=== PATIENT | male | born 1965 | race Caucasian/White ===

== ENCOUNTER → 2020-10-03 | Outpatient (CLI) | payer OTHER ==
--- NOTE | 2020-10-04 10:42 | XR ---
Right shoulder HISTORY: Strain one month prior, pain 3 views of the right shoulder Bone mineralization, joint spaces and alignment are maintained. Sclerotic focus within the proximal m etaphyseal right humerus could represent a bone island. Lung apex as visualized is normal. Suspect th ere is some hypertrophic change of the inferior bony labrum. IMPRESSION: No fracture or dislocation. Additional nonspecific findings described above, consider bon e scan, shoulder MRI for additional evaluation as indicated.
== END | disposition home or self-care (01) ==
LOC: RADXRYALE 16:07
PROVIDERS: ATTEND Physician Assistant Medical
DX: M25.511 Pain in right shoulder (principal)

== ENCOUNTER → 2020-12-22 | Outpatient (CLI) | payer OTHER ==
--- NOTE | 2020-12-22 18:15 | P.STRESS ---
- Stress Test Note Stress Test Results/Findings: Exam Performed: stress test Exam Date: 12/22/20 Reason for Exam: Abnormal EKG Height: 6 ft 2 in Weight: 149.685 kg Protocol: Jarad Stage: 2 Duration of Exercise: 6:52 Resting Heart Rate: 65 Resting Blood Pressure: 117/69 Maximum Achieved Heart Rate: 147 Maximum Achieved Blood Pressure: 156/96 85% PMHR: 142 100% PMHR: 167 METS: 8.3 Technologist Comment: Stress Test Results/Findings: Patient underwent exercise stress EKG with a Jarad protocol treadmill stress test. Patient exercised into Stage 2 for a total of 6 minutes 52 seconds reaching a total of 8.3 METS. Patient's maximum heart rate was 147 which represented 88 % age-predicted maximum heart rate. Stress EKG findings: At baseline patient's EKG showed normal sinus rhythm, normal axis, no significant ST-T wave abnormalities. At peak exercise, EKG showed occasional PVCs, no significant change from baseline. Conclusions: 1. Normal EKG response to exercise without evidence of inducible ischemia. 2. Poor exercise capacity.
== END | disposition home or self-care (01) ==
LOC: RADNMMAIN 08:44
PROVIDERS: ATTEND Family Medicine
DX: R94.31 Abnormal electrocardiogram [ECG] [EKG] (principal)
CPT/HCPCS: 93017

== ENCOUNTER → 2021-02-23 | Outpatient (CLI) | payer OTHER ==
--- NOTE | 2021-02-23 09:36 | XR ---
EXAMINATION TYPE: XR wrist complete RT DATE OF EXAM: 02/23/2021 CLINICAL HISTORY: Distal pain for 2 weeks. TECHNIQUE: Frontal, lateral and oblique images of the right wrist are obtained. COMPARISON: None FINDINGS: There is no acute fracture/dislocation evident in the right wrist. Carpal joint spaces are preserved. The overlying soft tissue appears unremarkable. IMPRESSION: Unremarkable study.
== END | disposition home or self-care (01) ==
LOC: RADXRYALE 09:01
PROVIDERS: ATTEND Physician Assistant Medical
DX: M25.531 Pain in right wrist (principal)

== ENCOUNTER → 2021-08-23 | Outpatient (CLI) | payer OTHER ==
--- NOTE | 2021-08-23 16:54 | XR ---
EXAMINATION TYPE: XR ribs LT w pa chest xray DATE OF EXAM: 08/23/2021 COMPARISON: None HISTORY: Pain TECHNIQUE: 2 view left RIBS FINDINGS: Some very subtle anterior rib end fractures are present on the eighth and seventh ribs. No pneumothorax is evident. Some atelectasis may be at the left costophrenic angle. IMPRESSION: 1. Very subtle left seventh and eighth anterior rib and fractures. Correlate with the location of th e patient's pain.
== END | disposition home or self-care (01) ==
LOC: RADXRYALE 09:55
PROVIDERS: ATTEND Physician Assistant
DX: S22.42XA Multiple fractures of ribs, left side, initial encounter for closed fracture (principal); X58.XXXA Exposure to other specified factors, initial encounter

== ENCOUNTER → 2022-04-30 | Outpatient (CLI) | payer OTHER ==
--- NOTE | 2022-04-30 17:05 | XR ---
EXAMINATION TYPE: XR chest 2V DATE OF EXAM: 04/30/2022 4:54 PM COMPARISON: Chest radiographs from chest radiograph 08/23/2021. TECHNIQUE: XR chest 2V Frontal and lateral views of the chest. CLINICAL INDICATION:Male, 57 years old with history of R059 COUGH; FINDINGS: Lungs/Pleura: There is no evidence of pleural effusion, focal consolidation, or pneumothorax. Pulmonary vascularity: Unremarkable. Heart/mediastinum: Cardiomediastinal silhouette is unremarkable. Musculoskeletal: No acute osseous pathology. IMPRESSION: No acute cardiopulmonary disease/process.
== END | disposition home or self-care (01) ==
LOC: RADXRYALE 16:42
PROVIDERS: ATTEND Physician Assistant
DX: R05.9 Cough, unspecified (principal)
CPT/HCPCS: 71046

== ENCOUNTER → 2022-12-18 | Outpatient (CLI) | payer OTHER ==
--- NOTE | 2022-12-18 15:22 | XR ---
EXAMINATION TYPE: XR lumbosacral spine min 4V DATE OF EXAM: 12/18/2022 CLINICAL HISTORY: pain COMPARISON: NONE TECHNIQUE: Frontal, lateral, and oblique images of the lumbar spine are obtained. FINDINGS: There are 5 lumbar type vertebral bodies identified. The lumbar spine shows satisfactory alignment without evidence of acute fracture or dislocation. Vertebral body heights are within normal limits. [id number] multilevel degenerative disc space narrowing and spondylosis. Severe facet joint arthropathy. The overlying soft tissue appears unremarkable. IMPRESSION: No acute fracture or dislocation is seen in the lumbar spine.ICD 10 NO FRACTURE, INITIAL EVALUATION
== END | disposition home or self-care (01) ==
LOC: RADXRYALE 14:41
PROVIDERS: ATTEND Physician Assistant
DX: M54.32 Sciatica, left side (principal); Z96.649 Presence of unspecified artificial hip joint
CPT/HCPCS: 72110

== ENCOUNTER → 2023-12-30 | Outpatient (CLI) | payer OTHER ==
--- NOTE | 2024-01-24 12:05 | XR ---
Report Patient: Brandon Bazan Ordering Physician: Unknown, Unknown ID: [id number] Phone, Pager: Phone: N/A Pager: N/A : [phone] Age/Gender: 58Y, M Primary Location: N/A Procedure: HipJoint-LLat Study Date: 12/30/2023 8:40:00 AM EXAMINATION TYPE: XR Hip complete 2 views LT DATE OF EXAM: 01/04/2024 Comparison: None Clinical History: 58-year-old male left hip pain, opposite hip with previous joint replacement Findings: There is moderate degenerative change at the left hip with prominent marginal spurring. Moderate to s evere loss of superolateral weightbearing joint space. No acute fracture, subluxation, dislocation. D egenerative change of the pubic symphysis as well. Couple sclerotic foci inferior left iliac bone/superior acetabulum probably bone islands. Impression: 1. Moderate to severe left hip OA. No acute osseous abnormality seen. 2. A couple sclerotic foci in the superior left acetabulum probably bone islands. Correlate with PSA values. 3. Degenerative change at the pubic symphysis.
== END | disposition home or self-care (01) ==
LOC: RADXRYALE 08:30
PROVIDERS: ATTEND Physician Assistant
DX: M16.12 Unilateral primary osteoarthritis, left hip (principal)
CPT/HCPCS: 73502

== ENCOUNTER → 2024-02-12 | Day surgery (SDC) | payer OTHER ==
[~2024-02-12] MED LIST: PROPOFOL 10 MG/ML 20 ML VIAL IV ONE
[2024-02-12 10:25] VITALS: TEMP 97.4
[2024-02-12] MEDS: IV FLUID CONTINUATION 1,000 ML IV ONE ×2 (10:26→11:11)
[2024-02-12] MEDS: LACTATED RINGERS 1,000 ML IV SCH (10:26)
--- NOTE | 2024-02-12 11:35 | P.PCN ---
Date of Procedure: 02/12/24 Procedure(s) Performed: BRIEF HISTORY: Patient is a 59-year-old pleasant white male scheduled for an elective colonoscopy as a part of screening for colon cancer. PROCEDURE PERFORMED: Colonoscopy with snare polypectomy. PREOPERATIVE DIAGNOSIS: Screening for colon cancer. IV sedation per Anesthesia. PROCEDURE: After informed consent was obtained, the patient, was brought into the endoscopy unit. IV sedation was administered by Anesthesia under continuous monitoring. Digital rectal examination was normal. Initially the Olympus CF-160 flexible video colonoscope was then inserted in the rectum, gradually advanced into the cecum without any difficulty. Careful examination was performed as the scope was gradually being withdrawn. Ileocecal valve and the appendiceal orifice were visualized and appeared normal. Prep was fair.. Mucosa of the cecum, appeared normal. The ascending colon there was a 7 mm polyp that was removed by cold snare polypectomy. Rest of the ascending colon, transverse colon, descending colon, sigmoid colon, and rectum appeared normal. Retroflexion was performed in the rectum and no lesions were seen. The patient tolerated the procedure well. IMPRESSION: 7 mm ascending colon polyp status post cold snare polypectomy Rest of the colon appeared normal RECOMMENDATIONS: Findings of this examination were discussed with the patient as well as his family. He was advised to follow with the biopsy results and if the biopsy reveals adenoma he can have repeat colonoscopy in 5 years.
[2024-02-12 12:03] VITALS: RESP 16
[2024-02-12 12:28] VITALS: BP 121/73; PULSE 58
== END ==
LOC: ORWHC2ENDO 09:33
PROVIDERS: ATTEND Internal Medicine Gastroenterology
DX: Z12.11 Encounter for screening for malignant neoplasm of colon
CPT/HCPCS: 45385; 88305